=== PATIENT | female | born 1930 | race Caucasian/White ===

== ENCOUNTER 2016-11-11 10:39 | Inpatient (IN) | payer MEDICARE ==
[~2016-11-11] VITALS: Ht 147.3 cm; Wt 54.5 kg
[~2016-11-11 10:39] MED LIST: ALDACTONE25 MG PO; ALOPHEN PILLS5 MG PO; ATIVAN0.5 MG PO; BAYER CHEWABLE81 MG PO; BUMEX 1 MG TAB1 MG PO; BUMEX2 MG PO; COLACE100 MG PO; COREG 3.1253.125 MG PO; DIOVAN320 MG PO; DURAGESIC1 PATCH .2 TRANSDERM; DURAGESIC1 PATCH .7 TRANSDERM; EPOGEN10000 U/ML SC; FERROUS SULFAT325 MG PO; FLORANEX / LACT1 TAB PO; GAS-X80 MG PO; HEALTHYLAX17 GM PO; HYDRALAZINE HCL25 MG PO; HYDROCODONE-APA1 TAB PO; IPRAT-ALBUT 0.5-3 ML UPD; K-DUR20 MEQ PO; KAYEXALATE15 G/60 ML PO; LASIX80 MG PO; MARINOL2.5 MG PO; MIRALAX17 GM PO; NEPHRO-VITE RX1 TAB PO; NYSTATIN1 PWD TOPICAL; PAROXETINE HCL10 MG PO; PROTONIX40 MG PO; RENVELA800 MG PO; SUPER B COMPLE150 MG PO; XANAX0.5 MG PO; ZOFRAN4 MG PO
[2016-11-11 11:34] LABS: BASOPHILS 0.3 % (0.0-2.0); EOSINOPHILS 1.9 % (0-7); HEMATOCRIT 39.7 % (36.0-48.0); HEMOGLOBIN 12.4 g/dL (12-16); IMMATURE GRANULOCYTES 0.3 % (0-5); LYMPHOCYTES 27.3 % (15-50); MCH 33.9 pg (26.0-34.0); MCHC 31.2 g/dL (31.0-37.0); MCV 108.5 fL (80.0-100.0); MEAN PLATELET VOLUME 12.1 fL (7.4-10.4); NEUTROPHILS 63.2 % (40-80); PLATELET COUNT 147 10x3/uL (130-400); RBC 3.66 10x6/uL (4.00-5.40); RDW 13.5 % (11.5-14.5); WBC 7.3 10x3/uL (4.8-10.8)
[2016-11-11 11:40] LABS: APPEARANCE CLOUDY (CLEAR); BACTERIA FEW /hpf (NONE SEEN); BILIRUBIN NEGATIVE (NEGATIVE); COLOR YELLOW (YELLOW); EPITHELIAL CELLS 0-5 /hpf (0-5); GLUCOSE NEGATIVE (NEGATIVE); KETONE NEGATIVE (NEGATIVE); LEUKOCYTE ESTERASE 2+ (NEGATIVE); NITRITE NEGATIVE (NEGATIVE); PROTEIN 1+ mg/dL (NEGATIVE); UROBILINOGEN NORMAL (NORMAL); WHITE CELLS - URINE >50 /hpf (0-5)
[2016-11-11 11:47] LABS: ALBUMIN 3.4 g/dL (3.4-5.0); ANION GAP 10.4 mmol/L (8-16); BILIRUBIN - TOTAL 0.23 mg/dL (0.2-1.3); CALCIUM 9.4 mg/dL (8.5-10.1); CARBON DIOXIDE 33.6 mmol/L (21.0-32.0); CREATININE - SERUM 4.7 mg/dL (0.6-1.3); PROTEIN - SERUM 6.9 g/dL (6.4-8.2)
--- NOTE | 2016-11-11 13:59 | NUR ---
DR SCHMIDT HERE. ASKED ME TO BLADDER SCAN PT. 248 ML NOTED DURING SCAN. PT HAS ONLY URINATED ONCE TODAY. DOES NOT FEEL LIKE HE NEEDS TO ANYMORE. RELAYED THIS INFO TO DR SCHMIDT.
[2016-11-11] MEDS ORDERED: RESTORIL15 MG PO (14:19)
[2016-11-11] MEDS ORDERED: MIRALAX17 GM PO (14:19)
[2016-11-11] MEDS ORDERED: BAYER CHEWABLE81 MG PO (14:19)
[2016-11-11 14:21] VITALS: BP 187/55; BMI 28.7
[2016-11-11] MEDS ORDERED: RENA-VITE TABL0.8 MG PO (14:21)
--- NOTE | 2016-11-11 14:34 | NUR ---
PT ADMITTED. PT CONFUSED ONLY ALERT TO SELF. REORIENTED. DAUGHTER AT BEDSIDE. SCD APPLIED AND PATENT. PT CAME WITH A PIECE OF TAPE OVER HEMOSPLIT. REMOVED AND DRESSED WITH STERILE CVL DRESSING. DAUGHTER AT BEDSIDE.
--- NOTE | 2016-11-11 18:34 | NUR ---
PT SITTING UP IN BED WATCHING TV DENIES NEEDS
--- NOTE | 2016-11-11 19:20 | NUR ---
RESTING QUIETLY IN BED, AWAKENS BRIEFLY TO NAME, SKIN WARM AND DRY, RESP UNLABORED, IV PATENT TO RIGHT FOREARM, RIGHT CHEST HEMOSPLIT IN PLACE, FENTANYL PATCH TO LEFT SHOULDER, BED ALARM IN USE, SIDE RAILS UP X3, CALL LIGHT WITHIN REACH, WILL CONTINUE TO MONITOR
[2016-11-11 20:15] VITALS: BP 136/50
[2016-11-12 00:34] VITALS: BP 141/53
--- NOTE | 2016-11-12 00:55 | NUR ---
SUPPLY CHAIN PLANNER AT BEDSIDE FOR VS, NEEDS ADDRESSED. CALL LIGHT IN REACH. WILL CONT TO MONITOR.
[2016-11-12 04:26] VITALS: BP 194/77
[2016-11-12 05:15] LABS: BASOPHILS 0.1 % (0.0-2.0); EOSINOPHILS 2.7 % (0-7); HEMATOCRIT 38.8 % (36.0-48.0); HEMOGLOBIN 12.2 g/dL (12-16); IMMATURE GRANULOCYTES 0.3 % (0-5); LYMPHOCYTES 30.1 % (15-50); MCH 33.6 pg (26.0-34.0); MCHC 31.4 g/dL (31.0-37.0); MCV 106.9 fL (80.0-100.0); MEAN PLATELET VOLUME 12.7 fL (7.4-10.4); MONOCYTES 8.2 % (2-11); NEUTROPHILS 58.6 % (40-80); PLATELET COUNT 162 10x3/uL (130-400); RBC 3.63 10x6/uL (4.00-5.40); RDW 13.5 % (11.5-14.5); WBC 7.7 10x3/uL (4.8-10.8)
[2016-11-12 05:34] LABS: ALBUMIN 3.5 g/dL (3.4-5.0); ANION GAP 12.2 mmol/L (8-16); BILIRUBIN - DIRECT 0.08 mg/dL (0.00-0.30); BILIRUBIN - INDIRECT 0.22 mg/dL (0.00-1.00); BILIRUBIN - TOTAL 0.3 mg/dL (0.2-1.3); CALCIUM 9.6 mg/dL (8.5-10.1); CARBON DIOXIDE 31.1 mmol/L (21.0-32.0); CREATININE - SERUM 5.4 mg/dL (0.6-1.3); PHOSPHOROUS 3.2 mg/dL (2.5-4.9); POTASSIUM - SERUM 4.3 mmol/L (3.5-5.1); PROTEIN - SERUM 6.9 g/dL (6.4-8.2); VANCOMYCIN - RANDOM 16.1 ug/mL (10.0-20.0)
--- NOTE | 2016-11-12 06:19 | NUR ---
RESTING QUIETLY IN BED, NO DISTRESS NOTED
--- NOTE | 2016-11-12 07:04 | NUR ---
PT SITTING UP IN BED SLEEPING NO S/S DISTRESS WILL CONT TO MONITOR.
[2016-11-12 08:33] VITALS: BP 184/77
[2016-11-12 12:26] VITALS: BP 139/96
[2016-11-12 15:46] VITALS: BP 172/77
--- NOTE | 2016-11-12 16:36 | NUR ---
I WAS IN ANOTHER ROOM ADMITTING A PATIENT. MS ARANA IN 2111 WAS YELLING OUT FOR A NURSE. I LEFT THE ROOM I WAS IN AND WENT INTO HER ROOM TO SEE WHAT SHE NEEDED. PT BECAME UPSET AND STARTED TO YELL AT ME SAYING "WHERE IS EVERYONE?! HAS EVERYONE ALREADY LEFT?!". I TOLD HER THAT NO ONE HAS LEFT AND THAT THE STAFF WAS STILL HERE. SHE SAID "WELL ITS TOO DAMN QUIET, WHERE IS EVERYONE?" I AGAIN TOLD HER THAT EVERYONE WAS STILL HERE. SHE THEN TOLD ME THAT I WAS "RUDE AND THAT I NEEDED TO BE NICER!" I TOLD HER THAT I WAS NOT DOING ANYTHING TO BE RUDE. SHE SAID THAT MY "TONE WAS NOT VERY NICE". SAID SHE NEEDED TO BE ON THE BEDPAN. PUT PT ON THE BED NG AND TOLD HER TO CALL WHEN SHE WAS FINISHED.
--- NOTE | 2016-11-12 17:58 | NUR ---
PT SITTING UP IN BED DENIES NEEDS
[2016-11-12 20:00] VITALS: BP 184/75
--- NOTE | 2016-11-12 21:15 | NUR ---
PT TRYING TO CLIMB OUT OF BED AND YELLING FOR NURSE, PT STATES THAT SHE THINKS SOMEONE IS GOING TO GET HER. REASSURED PT THAT SHE IS SAFE AND THAT SHE IS IN THE HOSPITAL ANS THAT THE STAFF IS HERE TO HELP HER. PAGE OUT TO [facility] DAIRY CATTLE FARMER FOR DR DAMIAN.
--- NOTE | 2016-11-12 21:54 | NUR ---
PT YELLING OUT FOR HELP THINKS THE HOSPITAL IS ON FIRE. ATTEMPTED TO REORIENT PT. SECOND PAGE OUT TO [facility]UONG APN.
--- NOTE | 2016-11-12 23:03 | NUR ---
HAND STRAIGHTENER AT BEDSIDE FOR VS. NEEDS ADDRESSED, CALL LIGHT IN REACH. WILL CONT TO MONITOR.
--- NOTE | 2016-11-12 23:19 | NUR ---
ATIVAN 2 MGs GIVEN PO FOR S/S AGITATION AND ANXIETY. WILL CONT TO MONITOR.
--- NOTE | 2016-11-13 00:52 | NUR ---
IN BED AWAKE, DENIES NEEDS, BED ALARM IN USE, SR UP X3, WILL CONT TO MONITOR.
--- NOTE | 2016-11-13 02:27 | NUR ---
REPOSITIONED IN BED FOR COMFORT.
[2016-11-13 03:49] VITALS: BP 176/69
[2016-11-13 05:29] LABS: BASOPHILS 0.1 % (0.0-2.0); EOSINOPHILS 1.4 % (0-7); HEMATOCRIT 40.6 % (36.0-48.0); HEMOGLOBIN 12.9 g/dL (12-16); IMMATURE GRANULOCYTES 0.2 % (0-5); MCH 33.7 pg (26.0-34.0); MCHC 31.8 g/dL (31.0-37.0); MEAN PLATELET VOLUME 12.6 fL (7.4-10.4); MONOCYTES 5.1 % (2-11); NEUTROPHILS 71.2 % (40-80); PLATELET COUNT 186 10x3/uL (130-400); RBC 3.83 10x6/uL (4.00-5.40); RDW 13.2 % (11.5-14.5); WBC 9.4 10x3/uL (4.8-10.8)
[2016-11-13 05:45] LABS: ANION GAP 14.3 mmol/L (8-16); CALCIUM 10.2 mg/dL (8.5-10.1); CARBON DIOXIDE 29.8 mmol/L (21.0-32.0); CREATININE - SERUM 6.2 mg/dL (0.6-1.3); POTASSIUM - SERUM 4.1 mmol/L (3.5-5.1); VANCOMYCIN - RANDOM 13.8 ug/mL (10.0-20.0)
[2016-11-13 05:46] LABS: PHOSPHOROUS 4.5 mg/dL (2.5-4.9)
--- NOTE | 2016-11-13 08:00 | NUR ---
PATIENT IS AWAKE AND ALERT, REFUSED HER BREAKFAST TRAY. ENCOURAGED TO TRY HER COFFEE. ASKED IS THERE IS ANYTHING [facility] THAT I CAN BRING TO HER THAT MAY BE APPETIZING. SHE REFUSES. ASSESSMENT COMPLETED.
[2016-11-13 08:25] VITALS: BP 213/107
--- NOTE | 2016-11-13 10:30 | NUR ---
SN SPOKE TO EVIE, DAUGHTER, SHE IS ON HER WAY UP TO VISIT WITH MOM.
[2016-11-13 11:37] VITALS: BP 195/80
--- NOTE | 2016-11-13 12:50 | NUR ---
TRIMMER PRESS CLIPPINGS HERE AND VISITING WITH THE PATIENT'S DAUGHTER AT THE BEDSIDE. PATIENT IS MUCH LESS AGITATED AND MORE COOPERATIVE AT THIS TIME. FRESH WATER GIVEN.
[2016-11-13 13:34] VITALS: Ht 147.3 cm; Wt 54.5 kg
--- NOTE | 2016-11-13 14:48 | NUR ---
PATEINT RESTING QUIETLY WITH EYES OPEN, LOOKING OUT THE WINDOW WHEN I ENTERED. SHE DENIES NEEDS AT THIS TIME. SHE STATES THAT SHE HAS SEEN THE DIALYSIS NURSE COME BY AND IS ANTICIPATING GOING TO DIALYSIS SOON. HER SCD'S ARE ON AND PUMPING. LIQUIDS AVAILABLE ON THE BEDSIDE. CALL LIGHT IS WITHIN HER REACH.
--- NOTE | 2016-11-13 14:50 | NUR ---
INJECTION MOLDING OPERATOR HERE AND VISITING WITH THE PATIENT'S DAUGHTER AT THE BEDSIDE. PATIENT IS MUCH LESS AGITATED AND MORE COOPERATIVE AT THIS TIME. FRESH WATER GIVEN.
[2016-11-13 15:59] VITALS: BP 201/90
--- NOTE | 2016-11-13 19:42 | NUR ---
PATEINT OUT OF ROOM. IN DIALYSIS AT THIS TIME.
--- NOTE | 2016-11-13 21:55 | NUR ---
RECEIVED IN BEDROOM. LAYING IN BED WITH EYES OPEN. JUST RETURNED FROM DIALYSIS. TRANSPORTED BY HOSPITAL STAFF. ORIENTED X2. NO SIGNS OF HALLUCINATIONS. CALL LIGHT IN REACH
--- NOTE | 2016-11-13 22:47 | NUR ---
RESTING IN BED WITH EYES CLOSED. NO SIGNS OF DISTRESS. CALL LIGHT IN REACH
[2016-11-14] VITALS: BP 150/64
[2016-11-14 04:00] VITALS: BP 135/67
[2016-11-14 05:58] LABS: BASOPHILS 0.3 % (0.0-2.0); EOSINOPHILS 1.5 % (0-7); HEMATOCRIT 39.9 % (36.0-48.0); HEMOGLOBIN 12.8 g/dL (12-16); IMMATURE GRANULOCYTES 0.2 % (0-5); LYMPHOCYTES 37.2 % (15-50); MCH 33.6 pg (26.0-34.0); MCHC 32.1 g/dL (31.0-37.0); MCV 104.7 fL (80.0-100.0); MEAN PLATELET VOLUME 11.8 fL (7.4-10.4); MONOCYTES 5.6 % (2-11); NEUTROPHILS 55.2 % (40-80); PLATELET COUNT 182 10x3/uL (130-400); RBC 3.81 10x6/uL (4.00-5.40); RDW 13.2 % (11.5-14.5)
[2016-11-14 06:26] LABS: ANION GAP 12.8 mmol/L (8-16); CALCIUM 9.3 mg/dL (8.5-10.1); CARBON DIOXIDE 30.2 mmol/L (21.0-32.0); PHOSPHOROUS 3.8 mg/dL (2.5-4.9); VANCOMYCIN - RANDOM 10.4 ug/mL (10.0-20.0)
[2016-11-14 06:31] LABS: CREATININE - SERUM 4.3 mg/dL (0.6-1.3)
[2016-11-14 06:36] LABS: WBC 6.6 10x3/uL (4.8-10.8)
--- NOTE | 2016-11-14 07:00 | NUR ---
RECEIVED REPORT. ASSUMED CARE OF PATIENT. CALL LIGHT WITH IN REACH. PATIENT AWAKE, ALERT, NOT ORIENTED TO PLACE. RESP EVEN AND UNLABORED. DENIES NEEDS. NO DISTRESS.
[2016-11-14 08:08] VITALS: BP 160/77
--- NOTE | 2016-11-14 08:30 | NUR ---
PATIENT PLACED IN CONTACT ISOLATION FOR ESBL IN URINE AT THIS TIME.
--- NOTE | 2016-11-14 10:00 | NUR ---
22 GAUGE IV SITE TO RIGHT FOREARM UNABLE TO FLUSH WITHOUT LEAKING FROM UNDER DRESSING, SMALL ELEVATED AREA NOTED PROXIMAL TO IV INSERTION SITE. SITE INFILTRATED. PATIENT HAS STUDENT NURSE PROVIDING CARES TODAY. STUDENT NURSE REQUEST THAT SHE AND HER INSTRUCTOR WOULD LIKE TO PLACE IV. WAITING FOR IV TO BE RESITED AT THIS TIME. NO DISTRESS.
--- NOTE | 2016-11-14 11:17 | NUR ---
22 GAUGE IV SITE PLACED TO RIGHT WRIST X 1 STICK AT THIS TIME. GOOD BLOOD RETURN, EASY FLUSH. TAPED DATED AND SECURED. PATIENT TOLERATED IV PLACEMENT WELL. 22 GAUGE REMOVED FROM RIGHT FOREARM, CATHETER TIP INTACT. 2X2 GAUZE APPLIED AND SECURED WITH TAPE. NO BLEEDING FROM SITE. BRIDGE MAINTENANCE WORKER ATTEMPTED X 2 AND WAS UNSUCCESSFUL VEINS BLEW EACH TIME SHE WAS IN THE VEIN. NO BLEEDING FROM SITES STUDENT TRIED TO PLACE IV. CALL LIGHT WITHIN REACH. PATIENT RECEIVING IV ABX AT THIS TIME, ROCEPHIN, BUT EMAR IS SHUTTING DOWN WHEN TRYING TO DOCUMENT MEDS GIVEN. IT IS AWARE AND TRYING TO CORRECT THE PROBLEM.
[2016-11-14 11:41] VITALS: BP 119/57
--- NOTE | 2016-11-14 14:50 | NUR ---
URINE SPECIMEN VIA IN AND OUT CATH VIA STERILE TECHNIQUE OBTAINED AND SENT TO LAB PER . PATIENT TOLERATED IN AND OUT CATH WELL. NO DISTRESS.
[2016-11-14 15:14] VITALS: BP 138/66
[2016-11-14 15:34] LABS: APPEARANCE HAZY (CLEAR); BILIRUBIN NEGATIVE (NEGATIVE); COLOR YELLOW (YELLOW); GLUCOSE NEGATIVE (NEGATIVE); KETONE NEGATIVE (NEGATIVE); LEUKOCYTE ESTERASE 2+ (NEGATIVE); NITRITE NEGATIVE (NEGATIVE); PROTEIN 1+ mg/dL (NEGATIVE); UROBILINOGEN NORMAL (NORMAL)
[2016-11-14 15:35] LABS: BACTERIA MANY /hpf (NONE SEEN); EPITHELIAL CELLS OCC /hpf (0-5); RED CELLS - URINE 0-5 /hpf (0-5); WHITE CELLS - URINE >50 /hpf (0-5)
--- NOTE | 2016-11-14 18:44 | NUR ---
RESTING WELL WITH EYES CLOSED. RESP EVEN AND UNLABORED. NO DISTRESS. CALL LIGHT WITHIN REACH.
[2016-11-14 20:00] VITALS: BP 129/63
--- NOTE | 2016-11-14 21:15 | NUR ---
INTRODUCED MYSELF TO PT PRIMARY RN FOR TODAYS SHIFT. PT IS LYING BACK IN BED RESTING QUIETLY AND STATES SHE HAS HAD A GOOD DAY AND IS JUST TIRED. ADMINISTERED NIGHTLY MEDICATIONS ALONG WITH HER IV ANBX ZOSYN. INFUSING VIA R.WRIST PIV WITH DRSG CDI AND SWAB CAPS IN USE. SHIFT ASSESSMENT COMPLETED. PT DENIES ANY CURRENT PAIN OR NEEDS AND STATES SHE IS READY TO GO TO BED FOR THE NIGHT. REQUEST LIGHTS LEFT ON AND DOOR OPEN THOUGH. BED IN LOWEST, SIDE RAILS X2, AND BUILT IN BED ALARM ON. WILL CPOC.
[2016-11-15] VITALS: BP 110/66; BP 97/44
--- NOTE | 2016-11-15 00:27 | NUR ---
PATIENT PATHWAYS: [facility] MWF @ 12:00. Met w/ pt & daughter bedside. Pt has been confused per daughter. Confirmed clinic info. Med recs forwarded to home unit. BMM Dialysis Coordinator.
--- NOTE | 2016-11-15 01:27 | NUR ---
PT RESTING QUIETLY IN BED WITH EYES CLOSED. RR NONLABORED ON RA. NO S/S OF DISTRESS OR ANY CURRENT NEEDS AT THIS TIME. CL IN REACH, BED IN LOWEST, SIDE RAILS X2. WILL CTM.
[2016-11-15 04:00] VITALS: BP 138/64
[2016-11-15 05:36] LABS: BASOPHILS 0.1 % (0.0-2.0); EOSINOPHILS 1.8 % (0-7); HEMATOCRIT 37.3 % (36.0-48.0); HEMOGLOBIN 12.2 g/dL (12-16); IMMATURE GRANULOCYTES 0.3 % (0-5); LYMPHOCYTES 36.4 % (15-50); MCH 33.9 pg (26.0-34.0); MCHC 32.7 g/dL (31.0-37.0); MCV 103.6 fL (80.0-100.0); MEAN PLATELET VOLUME 12.1 fL (7.4-10.4); MONOCYTES 8.1 % (2-11); NEUTROPHILS 53.3 % (40-80); PLATELET COUNT 182 10x3/uL (130-400); RDW 13.4 % (11.5-14.5); WBC 7.4 10x3/uL (4.8-10.8)
[2016-11-15 05:53] LABS: ANION GAP 14.2 mmol/L (8-16); CALCIUM 9.1 mg/dL (8.5-10.1); CARBON DIOXIDE 28.4 mmol/L (21.0-32.0); PHOSPHOROUS 4.2 mg/dL (2.5-4.9); POTASSIUM - SERUM 3.6 mmol/L (3.5-5.1); VANCOMYCIN - RANDOM 10.7 ug/mL (10.0-20.0)
[2016-11-15 05:56] LABS: CREATININE - SERUM 5.5 mg/dL (0.6-1.3)
[2016-11-15 08:05] VITALS: BP 125/53
--- NOTE | 2016-11-15 09:29 | NUR ---
PT ASSESSMENT COMPLETED PT RECIVING DIALYSIS AT THIS TIME WILL MONITOR
--- NOTE | 2016-11-15 11:29 | NUR ---
SPOKE WITH DAUGHTER CONCERNING MEDICATION CALL LIGHT IN REACH SRX2 BED LOW AND LOCKED WILL TR
[2016-11-15 12:07] VITALS: BP 90/40
--- NOTE | 2016-11-15 12:43 | NUR ---
Mrs. Doll had bedside hemodialysis today via her right chest hemosplit from 0923 until 1223. Average blood flow was 400 mls/minute. Pt. was very hypotensive during treatment. Net fluid removed was 1462 mls. Post vital signs were: B/P:152/54, HR:61, Temp:97.2, Resps:18.
--- NOTE | 2016-11-15 12:48 | NUR ---
PATIENT IS NOT ABLE TO ANSWER QUESTIONS. I HAVE SPOKEN WITH HER DAUGHTER, TERRI BYNUM AND CHRISTIN. PHONE [phone]. PATIENT'S DAUGHTER STATES PATIENT'S PCP IS DR. MUNSON. [facility] [place]. SHE USES AN ELECTRIC WHEELCHAIR. SHE IS CURRENT WITH [facility] IN [place]. SHE WOULD LIKE TO RESUME HOME HEALTH AFTER DISCHARGE FROM LONGTERM. PATIENT LIVES A HOME WITH HER DAUGHTER WHO STAYS AT NIGHT WITH HER AND SHE HAS PRIVATED CARE GIVERS DURING THE DAY WHEN HER DAUGHTER WORKS. PATIENT HAS BEEN TO [facility] IN THE PAST AND THEY WOULD LIKE REFERRAL FOR REHAB. I HAVE SPOKEN WITH CRISTINO AND FAXED INFORMATION TO HER FOR REFERRAL. PATIENT HAS DIALYSIS ON / AT 1200. SHE HAS BEEN TRANSPORTED TO DIALYSIS [facility]IA [facility]. HER DAUGHTER PAYS $25.00 FOR HER TRANSPORTATION TO DIALYSIS. WE DONOT HAVE A DISCHARGE DATE AT THIS TIME. CM TO FOLLOW. HER DAUGHTER REQUEST THAT WE LET HER KNOW WHEN WE KNOW WHEN SHE WILL BE ABLE TO BE DISCHARGED. Is the patient Alert and Oriented? No 0 * How many steps to enter\exit or inside your home? RAMP 0 * PCP DR. MUNSON 0 * Pharmacy [facility] IN [place] 0 * Preadmission Environment Home with Family 0 * ADLs Total Dependent 0 * Equipment Wheelchair 0 * Other Equipment PATIENT HAS AN ELECTRIC WHEELCHAIR 0 * List name and contact numbers for known caregivers / representatives who currently or will assist patient after discharge: DAUGHTER: TERRI BYNUM [phone] 0 * Community resources currently utilized Home Health 0 * Please name any agencies selected above. [facility] IN [place], [place]. 0 * Additional services required to return to the preadmission environment? Yes 0 * Can the patient safely return to the preadmission environment? No 0 * Has this patient been hospitalized within the prior 30 days at any hospital? No 0
--- NOTE | 2016-11-15 14:16 | NUR ---
Nutrition follow-up: Diet: Renal with Nepro TID Pt refusing some meals PO intake ~25% of meals Labs reviewed Wt: 124# +BM Will continue to provide food choices and encourage increased po intake. Following.
[2016-11-15 17:04] VITALS: BP 95/50
--- NOTE | 2016-11-15 19:55 | NUR ---
PT NOT GIVEN DAILY ZOFRAN THIS AM DUE TO BEING IN DIALYSIS. PT CALLED WITH C/O NAUSEA. ZOFRAN ADMINISTERED AT THIS TIME. PT DENIES FURTHER NEEDS. BED LOW. CL IN REACH.
--- NOTE | 2016-11-15 20:30 | NUR ---
PT HS MEDS ADMINISTERED WITHOUT DIFFICULTY. PT DENIES FURTHER NEEDS. BED LOW. CL IN REACH.
[2016-11-15 21:17] VITALS: BP 128/59
--- NOTE | 2016-11-15 22:42 | NUR ---
PT RESTING, EYES CLOSED. BED LOW. CL IN REACH.
[2016-11-16 01:21] VITALS: BP 124/59
--- NOTE | 2016-11-16 02:38 | NUR ---
PT RESTING, EYES CLOSED. RR ARE EVEN AND UNLABORED. WCTM. BED LOW. CL IN REACH.
[2016-11-16 04:00] VITALS: BP 141/70
[2016-11-16 05:46] LABS: ANION GAP 13.1 mmol/L (8-16); BASOPHILS 0.2 % (0.0-2.0); CALCIUM 9.6 mg/dL (8.5-10.1); CARBON DIOXIDE 27.9 mmol/L (21.0-32.0); CREATININE - SERUM 4.3 mg/dL (0.6-1.3); EOSINOPHILS 1.7 % (0-7); HEMATOCRIT 39.1 % (36.0-48.0); HEMOGLOBIN 12.7 g/dL (12-16); IMMATURE GRANULOCYTES 0.2 % (0-5); LYMPHOCYTES 29.7 % (15-50); MCH 33.8 pg (26.0-34.0); MCHC 32.5 g/dL (31.0-37.0); MEAN PLATELET VOLUME 12.3 fL (7.4-10.4); MONOCYTES 9.2 % (2-11); PHOSPHOROUS 3.3 mg/dL (2.5-4.9); PLATELET COUNT 176 10x3/uL (130-400); RBC 3.76 10x6/uL (4.00-5.40); RDW 13.4 % (11.5-14.5); VANCOMYCIN - RANDOM 9.7 ug/mL (10.0-20.0)
[2016-11-16 05:47] LABS: WBC 9.6 10x3/uL (4.8-10.8)
--- NOTE | 2016-11-16 06:22 | NUR ---
PT AM MEDS ADMINISTERED. PT DENIES NEEDS. BED LOW. CL IN REACH.
--- NOTE | 2016-11-16 07:17 | NUR ---
PT SITTING UP IN BED SLEEPING NO S/S DISTRESS NOTED.
[2016-11-16 08:45] VITALS: BP 147/67
--- NOTE | 2016-11-16 09:21 | NUR ---
CHANGED PT R CHEST HEMOSPLIT DRESSING. STERILE TECHNIQUE INITIATED, SIGNED AND DATED.
--- NOTE | 2016-11-16 12:20 | NUR ---
PT IS CONSTANTLY SOCIAL SERVICE ASSISTANT LIGHT EVERY 5-10 MINS TO ASK STAFF TO PUT HER HEAD OF BED DOWN AND BACK UP AGAIN. THERMOSTAT CHANGES, HER COVERS STRAIGHTENED OUT, ETC. DONE THESE TASKS EACH TIME.
[2016-11-16 12:38] VITALS: BP 156/61
--- NOTE | 2016-11-16 15:27 | NUR ---
PT PULLED OUT PIV CATHETER TIP INTACT. INSERTED 22G PIV TO R FA X2 STICKS. SIGNED AND DATED DRESSING.
[2016-11-16 16:07] VITALS: BP 172/84
--- NOTE | 2016-11-16 18:16 | NUR ---
PT SITTING UP IN BED DENIES NEEDS
[2016-11-16 20:00] VITALS: BP 186/60
[2016-11-17] VITALS: BP 173/79
[2016-11-17 04:00] VITALS: BP 173/77
[2016-11-17 05:00] LABS: BASOPHILS 0.2 % (0.0-2.0); EOSINOPHILS 1.7 % (0-7); HEMATOCRIT 38.7 % (36.0-48.0); HEMOGLOBIN 12.8 g/dL (12-16); IMMATURE GRANULOCYTES 0.2 % (0-5); LYMPHOCYTES 32.2 % (15-50); MCH 33.8 pg (26.0-34.0); MCHC 33.1 g/dL (31.0-37.0); MCV 102.1 fL (80.0-100.0); MONOCYTES 7.4 % (2-11); NEUTROPHILS 58.3 % (40-80); PLATELET COUNT 192 10x3/uL (130-400); RBC 3.79 10x6/uL (4.00-5.40); RDW 13.1 % (11.5-14.5); WBC 9.3 10x3/uL (4.8-10.8)
[2016-11-17 05:17] LABS: ANION GAP 16.2 mmol/L (8-16); CALCIUM 9.7 mg/dL (8.5-10.1); CARBON DIOXIDE 26.4 mmol/L (21.0-32.0); CREATININE - SERUM 5.3 mg/dL (0.6-1.3); PHOSPHOROUS 3.4 mg/dL (2.5-4.9); POTASSIUM - SERUM 3.6 mmol/L (3.5-5.1)
--- NOTE | 2016-11-17 07:22 | NUR ---
PT SITTING UP IN BED SLEEPING NO S/S DISTRESS NOTED WILL CONT TO MONITOR
[2016-11-17 08:56] VITALS: BP 180/76
[2016-11-17 12:00] VITALS: BP 91/66
--- NOTE | 2016-11-17 12:09 | NUR ---
MICRO CAME TO FLOOR SAID PT IS POSITIVE FOR CDIFF. CALLED DOC YA RENAL. SHE SAID HOLD DC FOR NOW AND SHE WILL PUT IN ORDERS.
--- NOTE | 2016-11-17 12:58 | NUR ---
Mrs. Doll had bedside hemodialysis today via her right chest hemosplit from 0931 until 1230. Average blood flow was 400 mls/minute. Pt. hypotensive during treatment and was having several watery stools. Net fluid removed was 1699 mls. Post vital signs were: B/P:119/62, HR:92,Temp:97.3, Resps:18.
--- NOTE | 2016-11-17 14:23 | NUR ---
Patient Name: TREY ARANA Encounter No: [id number] : 1930 Primary Insurance: MEDICARE A & B Anticipated DC Date: Planned Disposition: Senior Care Facility External Planned Provider: : DCP follow-up note: CM spoke with "Mary" at [facility] in [place] ([phone]) who states patient has been accepted to facility at discharge. CM spoke with patient's nurse who states discharge is now on hold secondary to increased confusion and (+) C-Diff today. CM notified "Mary" at [facility] of above. CM also spoke with patient's daughter "Yady [facility]wood" ([phone]) and notified her of patient's acceptance to [facility] at discharge and current delay in discharge at this time. Case management will follow and assist as needed. Helen Peralta RN/CM
[2016-11-17 17:41] VITALS: BP 146/79
--- NOTE | 2016-11-17 17:48 | NUR ---
PT SITTING UP IN BED DENIES NEEDS
[2016-11-17 20:00] VITALS: BP 184/92
--- NOTE | 2016-11-17 21:11 | NUR ---
ADMINISTERED NIGHTLY MEDS ORDERED. ALSO ADMINISTERED DAILY ATIVAN R/T PT NOT RECIEVING IT EARLIER TODAY AND SHE WAS GETTING RESTLESS AND C/O REQUESTING IT. PROVIDED PT WITH FRESH ICE WATER AT BEDSIDE REQUESTED. INITIATED IVPB ZOSYN VIA R.WRIST PIV, WITH DRSG CDI AND SWAB CAPS IN USE. PT RESTING QUIETLY IN BED AND DENIES ANY FURTHER NEEDS AT THIS TIME AND WOULD LIKE TO REST. CL IN REACH, BED IN LOWEST, SIDE RAILS X2 AND BUILT IN BED ALARM ON. WILL CPOC.
[2016-11-18 04:00] VITALS: BP 149/89
[2016-11-18 08:40] LABS: BASOPHILS 0.3 % (0.0-2.0); EOSINOPHILS 0.3 % (0-7); HEMATOCRIT 41.1 % (36.0-48.0); HEMOGLOBIN 13.7 g/dL (12-16); IMMATURE GRANULOCYTES 0.2 % (0-5); LYMPHOCYTES 23.1 % (15-50); MCH 33.4 pg (26.0-34.0); MCHC 33.3 g/dL (31.0-37.0); MCV 100.2 fL (80.0-100.0); MEAN PLATELET VOLUME 11.8 fL (7.4-10.4); MONOCYTES 7.4 % (2-11); NEUTROPHILS 68.7 % (40-80); PLATELET COUNT 200 10x3/uL (130-400); WBC 10.7 10x3/uL (4.8-10.8)
[2016-11-18 09:19] VITALS: BP 117/63
[2016-11-18 09:52] LABS: ANION GAP 16.9 mmol/L (8-16); CALCIUM 9.9 mg/dL (8.5-10.1); CARBON DIOXIDE 26.6 mmol/L (21.0-32.0); CREATININE - SERUM 4.5 mg/dL (0.6-1.3); PHOSPHOROUS 3.4 mg/dL (2.5-4.9); POTASSIUM - SERUM 3.5 mmol/L (3.5-5.1)
[2016-11-18] MEDS ORDERED: FLAGYL500 MG PO (10:25)
[2016-11-18 12:21] VITALS: BP 170/86
--- NOTE | 2016-11-18 13:00 | NUR ---
DCD PT IV TIP INTACT PT IS DISCHARGING PER ORDER
--- NOTE | 2016-11-18 13:26 | NUR ---
PT RESTING IN BED WITH EYES OPEN EATING BREAKFAST TOLERATING WELL WILL MONITER
--- NOTE | 2016-11-18 14:57 | NUR ---
PT DISCHARGED TO [facility] IN [place] VIA AMBULANCE REPORT CALLED TO ASHLEY AT [facility] DISCHARGE PACK SENT WITH PT
== END 2016-11-18 14:59 | DRG 689 ==
LOC: D.ER 10:39 → D.M2 13:29
PROVIDERS: Family Medicine; ADMIT Internal Medicine Nephrology
PROC: 5A1D60Z (ICD-10-PCS; principal; 2016-11-13)
DX: N30.90 Cystitis, unspecified without hematuria (principal); N18.6 End stage renal disease; I13.2 Hypertensive heart and chronic kidney disease with heart failure and with stage 5 chronic kidney disease, or end stage renal disease; R41.82 Altered mental status, unspecified; E83.39 Other disorders of phosphorus metabolism; G89.29 Other chronic pain; E11.22 Type 2 diabetes mellitus with diabetic chronic kidney disease; I50.9 Heart failure, unspecified; Z99.2 Dependence on renal dialysis; D63.1 Anemia in chronic kidney disease; B96.20 Unspecified Escherichia coli [E. coli] as the cause of diseases classified elsewhere; Z86.73 Personal history of transient ischemic attack (TIA), and cerebral infarction without residual deficits; B96.89 Other specified bacterial agents as the cause of diseases classified elsewhere